=== PATIENT | female | born 1950 | race Caucasian/White ===

== ENCOUNTER 2017-08-06 09:08 | Emergency (ER) | payer MEDICARE, BC, OTHER ==
[2017-08-06] MEDS ORDERED: AVALIDE 300-12.1 TAB PO (09:39)
[2017-08-06] MEDS ORDERED: PRILOSEC20 MG PO (09:39)
[2017-08-06] MEDS ORDERED: ZOLOFT50 MG PO (09:40)
[2017-08-06] MEDS ORDERED: SIMVASTATIN20 MG PO (09:40)
[2017-08-06 10:12] LABS: HEMATOCRIT 43.4 % (37.0-47.0); HEMOGLOBIN 14.5 g/dl (12.0-16.0); IMMATURE GRANULOCYTES 1.2 % (0.0-1.0); MEAN CELL VOLUME 89.9 fL CALC (80.0-100.0); MEAN CORPUSCULAR HGB CONC 33.4 g/L CALC (32.0-36.0); NEUT# 6.85 thou/uL (2.00-7.15); RED BLOOD COUNT 4.83 mill/uL (4.20-5.60); RED CELL DISTRI WIDTH 12.1 % (11.5-15.5)
[2017-08-06 10:27] LABS: ALBUMIN 4.1 g/dL (3.2-5.0); ALKALINE PHOSPHATASE 158 u/l (38-126); ANION GAP 17 (6-22 (CALC)); BILIRUBIN, TOTAL 0.5 mg/dL (0.0-1.4); BUN 22 mg/dL (8-23); BUN/CREATININE RATIO 30 (12-20 (CALC)); CARBON DIOXIDE 27 mmol/l (22-30); CHLORIDE 103 mmol/l (95-108); CREATININE 0.7 mg/dL (0.5-1.0); GFR > 60 ML/MIN (>=60 (CALC)); GFR FOR AFR.AMER. > 60 ML/MIN (>=60 (CALC)); POTASSIUM 4.4 mmol/l (3.5-5.1); SGOT/AST 50 u/l (9-36); SGPT/ALT 68 u/l (11-66); SODIUM 143 mmol/l (137-146); TOTAL PROTEIN 6.9 g/dL (6.3-8.2)
[2017-08-06] MEDS ORDERED: XANAX0.5 MG PO (10:35)
[2017-08-06] MEDS ORDERED: VISTARIL25 MG PO (10:35)
[2017-08-06] MEDS ORDERED: DELTASONE20 MG PO (10:35)
[2017-08-06 10:44] VITALS: BP 132/58
== END 2017-08-06 11:00 | disposition home or self-care (01) ==
LOC: ED 09:08
PROVIDERS: Emergency Medicine
DX: L50.9 Urticaria, unspecified (principal); I10 Essential (primary) hypertension